=== PATIENT | male | born 1925 | race Caucasian/White ===

== ENCOUNTER 2016-08-29 21:07 | Emergency (ER) | payer MEDICARE ==
[~2016-08-29] VITALS: Ht 177.8 cm; Wt 70.9 kg
[~2016-08-29 21:07] MED LIST: AMLO2.5T2 PO; ASA325 PO; CHOL400T41 PO; COR200 PO; CYAN250L PO; FLONASE; PAN PO; PRV40T PO; ProAirHFA INH; ZINC1CAP PO
[2016-08-29 21:35] VITALS: BP 159/72; PULSE 82; RESP 16; O2SAT 93
[2016-08-29 22:12] LABS: BASOPHILS % (AUTO) 0.5 % (0-3); EOSINOPHILS % (AUTO) 2.7 % (0-5); MONOCYTES % (AUTO) 8.8 % (4-12); Mean Corpuscular Hemoglobin 30.2 pg (27.0-35.0); Mean Corpuscular Volume 91.9 fL (81-100); NEUTROPHILS % (AUTO) 69.1 % (40-74); Platelet Count 189 bil/L (150-400)
[2016-08-29 22:27] LABS: INR 0.94 ratio
[2016-08-29 22:47] LABS: TROPONIN T 0.01 ug/L (0.0-0.011)
[2016-08-29] MEDS ORDERED: CLOP75TA28 PO (23:45)
--- NOTE | 2016-08-29 23:45 | ED.REPORT ---
HPI-General Illness Date of Service Aug 29, 2016 ED Provider: Vasquez Nayak MD Pt is an 89 year old male with a history of HTN, pacemaker insertion, and COPD who presents to the ED complaining of epistaxis. He c/o associated SOB, elevated blood pressure (176/96), and and chest pain. Pt described his chest pain as tight and heavy and reports that he feels "jittery." He denies any other symptoms. Pt's daughter reports that he may have taken 1.5x his normal dose of amlodipine on accident and he has not taken his heart pill today. Pt has not taken warfarin, but he has been taking Plavix. Nursing Notes Stated Complaint: POSSIBLY TOO MUCH BLOOD PRESSURE MEDS Chief Complaint: General Complaint Nursing Notes Reviewed: Yes Allergies: Coded Allergies: Wheat (Verified Allergy, Unknown, 08/29/16) Breakout with blisters tamsulosin (Verified Allergy, Unknown, 08/29/16) blisters, sinus, stuffy nose tetracycline (Verified Allergy, Unknown, 08/29/16) break in blood veins Scheduled AmLODIPine-Expunged Drug, Do Not Renew! (AmLODIPine-Expunged Drug, Do Not Renew! ) 2.5 Mg Tablet 1.25 MG PO DAILY Amiodarone-Expunged Drug, Do Not Renew! (Amiodarone-Expunged Drug, Do Not Renew! ) 200 Mg Tablet 100 MG PO DAILY Aspirin-Expunged Drug, Do Not Renew! (Aspirin-Expunged Drug, Do Not Renew!) 325 Mg Tablet 325 MG PO DAILY CHOLECALCIFEROL-Expunged Drug, Do Not Renew! (VITAMIN D-Expunged Drug, Do Not Renew!) 400 Unit Tablet 50,000 UNIT PO month CYANOCOBALAMIN (B12)-Expunged Drug, Do Not Re (VITAMIN J-17-Icnvovqu Drug, Do Not Renew!) 250 Mcg Lozenge 500 MCG PO QW Clopidogrel (Clopidogrel) 75 Mg Tablet 37.5 MG PO DAILY FLUTICASONE-Expunged Drug, Do Not Renew! (FLONASE-Expunged Drug, Do Not Renew!) 120 Sprays/16 Gm Aero 1 SPRAYS NA BID Lipase/Amylase/Protease-Expunged, Do Not Albin (Pancrease-Expunged, Do Not Renew! ) 1 Ea Cap 1 EA PO TIDWM Pravastatin-Expunged Drug, Do Not Renew! (Pravachol-Expunged Drug, Do Not Renew! ) 40 Mg Tablet 40 MG PO HS Zinc Mth/Copper/Saw Palm/Gnsg ([facility]) 1 Each Capsule 1 EACH PO DAILY Scheduled PRN Albuterol-Expunged Drug, Do Not Renew! (ProAir HFA-Expunged Drug, Do Not Renew! ) 200 Puff/8.5 Gm Hfa.aer.ad 2 PUFFS INH Q4 PRN PRN General Time Seen by MD: 23:43 Chief Complaint Other (Nose bleeding) Hx Obtained From: Patient Arrived By: Walk-in Sudden in Onset?: No Onset Occurred: Just prior to arrival Symptom Duration: Since onset Location: : Chest Quality: Heaviness Severity: Current: Moderate Severity: Maximum: Moderate Recent Healthcare: No recent doctor visit, No recent hospitalization Similar Sx Previous: Yes Past Medical History Past Medical History Cataracts Reports: Asthma, COPD, Hypertension, Denies: Diabetes mellitus Past Surgical History Pacemaker insertion Smoking History Unknown if Ever Smoker Social History Alcohol Use: Denies alcohol use Drug Use: Denies drug use Other Social History: Good social support Ambulatory Status Independent Review of Systems Full Review of Systems Constitutional: Denies: Fever Ears / Nose / Throat: Reports: Nose bleeding Respiratory: Reports: Shortness of breath, Denies: Non-productive cough Cardiovascular: Reports: Chest pain (Tight) Complete sys rev & neg: except as marked. Physical Exam Vital Signs Vital Signs Date Time Temp Pulse Resp B/P Pulse Ox O2 Delivery O2 Flow Rate FiO2 08/30/16 02:11 128/54 94 08/29/16 21:35 36.5 82 16 159/72 93 Room Air Initial VS: Reviewed, Vital signs normal Head / Eyes: Atraumatic, Normocephalic Neck: Supple, Full range of motion Respiratory: Breath sounds normal, Clear to auscultation, No respiratory distress Cardiovascular: Regular rate & rhythm, Heart sounds normal, Intact distal pulses Abdomen / GI: Soft, Non-tender Extremities: Vascular intact, Neuro intact Skin: Warm, Dry, No cyanosis Neurologic: Alert, Oriented, Nonfocal Psychiatric: Mood/affect normal, Behavior normal General/Constitutional: Awake, Alert, Cooperative ENT: Atraumatic, Airway patent, Mucous membranes moist Dried blood in his nose, but no active bleeding. Interpretation & Diagnostics Lab Results Interpretation Result Diagram: 08/29/16 2200 08/30/16 0045 Test 08/29/16 22:00 08/30/16 00:45 White Blood Count 8.8th/mm3 (3.8-10.1) Red Blood Count 5.59mil/mm3 (4.40-5.80) Hemoglobin 16.9g/dL (13.8-17.2) Hematocrit 51.4% (41.0-50.0) Mean Corpuscular Volume 91.9fL (81-100) Mean Corpuscular Hemoglobin 30.2pg (27.0-35.0) Mean Corpuscular Hemoglobin Concent 32.9% (32.0-37.0) Red Cell Distribution Width 15.1% (12.3-15.4) Platelet Count 189bil/L (150-400) Neutrophils (%) (Auto) 69.1% (40-74) Lymphocytes (%) (Auto) 18.8% (14-46) Monocytes (%) (Auto) 8.8% (4-12) Eosinophils (%) (Auto) 2.7% (0-5) Basophils (%) (Auto) 0.5% (0-3) Prothrombin Time 10.0sec (8.1-12.5) Prothromb Time International Ratio 0.94ratio Hold Goff Top Tube Received (Received) Sodium Level 139mEq/L (134-144) Potassium Level 4.1mEq/L (3.5-5.2) Chloride Level 101mEq/L (97-108) Carbon Dioxide Level 20mmol/L (18-29) Blood Urea Nitrogen 18mg/dL (8-27) Creatinine 1.08mg/dL (0.76-1.27) Estimat Glomerular Filtration Rate 68mL/min (>59) Glucose Level 135mg/dL (60-99) Calcium Level 9.5mg/dL (8.5-10.1) Magnesium Level 2.3mg/dL (1.6-2.6) Total Bilirubin 0.3mg/dL (0.0-1.2) Aspartate Amino Transf (AST/SGOT) 22U/L (0-50) Alanine Aminotransferase (ALT/SGPT) 16U/L (0-44) Alkaline Phosphatase 76U/L (25-160) Troponin T 0.010ug/L (0.0-0.011) Total Protein 7.6g/dL (6.4-8.4) Albumin 4.3g/dL (3.4-5.0) Lab values outside NL range: no clinical significance. ECG Interpretation ECG Interpretation: Atrial-sensed ventricular-paced complexes with a rate of 85. Time: 23:33 Interpreted by: ED physician X-Ray Chest Interpretation Chest Xray Interpretation: Increased marking; evidence of COPD. No sign of infiltrate seen. View: AP & lat Interpretation / Wet Read by: Wet read ED physician Re-Eval/Medical Decision Med Decision/Clinical Course 89-year-old male with some labile hypertension. I suspect that he has been somewhat erratic in taking his medications. He also had some vague chest discomfort. Workup was negative. His blood pressure normalized and he had no further nose bleeding. Source of Hx: Old records Time of Eval: 23:56 Re-Evaluation/Progress Note: Pt rechecked. Pt took his 100 mg of Amiodarone that he missed. All questions addressed. Time of Eval: 01:45 Patient Status: Condition improved Re-Evaluation/Progress Note: Pt rechecked. Pt reports that his chest pressure has improved, but not completely resolved and that he thinks it is digestive. Informed pt of plan for discharge. Pt understands and agrees with plan for discharge. F/U instructions and RTER warnings given. All questions addressed. Counseled Regarding: Diagnosis, Lab results, Need for follow-up, When/why to return to ED Discharge & Departure Primary Impression: Labile hypertension Additional Impression: Epistaxis Disposition: Home Discharge Condition All VS Reviewed: Yes Condition: Stable Patient Instructions: Chronic Hypertension (ED) Additional Instructions: It is quite common for a person with hypertension to have elevated blood pressure with no known cause. If your blood pressure continues to be elevated, we will need to make some adjustment in her medications, but we do not usually change anything until it has become a more persistent problem. Amiodarone needs to be taken consistently at approximately the same time every day. You should probably move your amiodarone dose time to morning to make it easier to remember. Try not to miss doses. If the nose rebleeds, simply apply the clamp for 15 or 20 minutes and that should stop it. If not he can return to the emergency room for further evaluation and possible packing. Call me at [phone] the hours of 9 PM and 6 AM for the next couple nights if you have any questions and concerns. Referrals: [facility] Scribe Attestation Portions of this note were transcribed by Cinthia Elisa. I, Dr. Nayak personally performed the history, physical exam and medical decision-making; I reviewed and confirmed the accuracy of the information in the transcribed note. Signed by: Dean Murdock, 08/30/16 and 00:50. copies to: [facility] Vasquez Nayak MD Aug 29, 2016 23:45 Cinthia Fisher Aug 29, 2016 23:54
[2016-08-30 01:22] LABS: TROPONIN T 0.01 ug/L (0.0-0.011)
[2016-08-30 01:35] LABS: Magnesium 2.3 mg/dL (1.6-2.6)
[2016-08-30 02:11] VITALS: BP 128/54; O2SAT 94
--- NOTE | 2016-08-30 07:08 | DRSVH ---
PROCEDURE: X-RAY CHEST ONE VIEW, PORTABLE ([id number]) INDICATIONS: short of breath TECHNIQUE: One view of the chest was acquired. COMPARISON: [facility], , CHEST 1VW (PORTABLE), 10/23/2011, 20:39. FINDINGS: Surgical changes and devices: Left-sided cardiac pacer. Lungs and pleura: There is a 1 cm nodule projecting over the left lung base. Extensive scarring and e mphysema. No definite infiltrates. No pleural effusions.. Mediastinum: Mediastinal contours appear normal. Heart size is normal. Bones and chest wall: No suspicious bony lesions. Overlying soft tissues appear unremarkable. IMPRESSION: 1. Possible left lung base nodule may represent confluent scarring, an atypical nipple shadow, or a m ass. Recommend chest CT with contrast for further evaluation. 2. Emphysema. Dictated by: Rachid Nath M.D. on 08/30/2016 at 6:59 Approved by: Rachid Nath M.D. on 08/30/2016 at 7:01
== END 2016-08-30 02:35 | disposition home or self-care (01) ==
LOC: SED 21:07
DX: R04.0 Epistaxis (principal); I10 Essential (primary) hypertension; R06.02 Shortness of breath; R07.89 Other chest pain; J44.9 Chronic obstructive pulmonary disease, unspecified; Z95.0 Presence of cardiac pacemaker; Z88.1 Allergy status to other antibiotic agents; Z88.8 Allergy status to other drugs, medicaments and biological substances; Z91.018 Allergy to other foods

== ENCOUNTER 2016-10-05 16:18 | Emergency (ER) | payer MEDICARE ==
[~2016-10-05] VITALS: Ht 175.3 cm; Wt 155.0 kg
[2016-10-05] VITALS (7 sets, daily range): BP systolic 126–147; BP diastolic 45–76; PULSE 77–92; RESP 15–20; O2SAT 90–96
[~2016-10-05 16:18] MED LIST changes: +CLOP75TA28 PO
[2016-10-05 17:02] LABS: BASOPHILS % (AUTO) 0.4 % (0-3); EOSINOPHILS % (AUTO) 1.2 % (0-5); MONOCYTES % (AUTO) 4.3 % (4-12); Mean Corpuscular Hemoglobin 30.7 pg (27.0-35.0); Mean Corpuscular Volume 91.8 fL (81-100); NEUTROPHILS % (AUTO) 81.9 % (40-74); Platelet Count 184 bil/L (150-400)
[2016-10-05 17:23] LABS: TROPONIN T < 0.010 ug/L (0.0-0.011)
[2016-10-05 17:33] LABS: Magnesium 2.1 mg/dL (1.6-2.6)
--- NOTE | 2016-10-05 18:04 | DRSVH ---
PROCEDURE: X-RAY CHEST ONE VIEW, PORTABLE ([id number]) INDICATIONS: CHEST PAIN, SHORTNESS OF BREATH TECHNIQUE: One view of the chest was acquired. COMPARISON: [facility], CR, XR CHEST 1VW (PORTABLE), 08/29/2016, 21:50. FINDINGS: Surgical changes and devices: Dual-lead cardiac pacer is stable. Lungs and pleura: No pleural effusions or pneumothorax. Lungs are hyperinflated suggesting COPD. Syeda gs are clear of acute opacities. Mediastinum: Mediastinal contours appear normal. Heart size is normal. Bones and chest wall: No suspicious bony lesions. Overlying soft tissues appear unremarkable. IMPRESSION: No acute cardiopulmonary disease process. Dictated by: Verito Fitch MD, PhD on 10/05/2016 at 18:00 Approved by: Verito Fitch MD, PhD on 10/05/2016 at 18:03
--- NOTE | 2016-10-05 18:22 | ED.REPORT ---
HPI-Chest Pain 40 and Over Date of Service Oct 05, 2016 ED Provider: Missael Marinelli DO Patient is an 89 year old male with a history of pacemaker, hypertension, COPD and CVA who presents to the ED complaining of chest pressure onset earlier today. Associated symptoms include shortness of breath, diarrhea and a subjective fever. He denies radiating pain, nausea or vomiting. Patient states that the pressure lasted about 5 minutes. The patient reports that the pain improved after taking his blood pressure medication. He is currently on Plavix. Nursing Notes Stated Complaint: CHEST PAIN, CHEST PRESSURE, HIGH BLOOD PRESSURE Chief Complaint: Dysrhythmia/Cardiac Nursing Notes Reviewed: Yes Allergies: Coded Allergies: Wheat (Verified Allergy, Unknown, 10/05/16) Breakout with blisters tamsulosin (Verified Allergy, Unknown, 10/05/16) blisters, sinus, stuffy nose tetracycline (Verified Allergy, Unknown, 10/05/16) break in blood veins Scheduled AmLODIPine-Expunged Drug, Do Not Renew! (AmLODIPine-Expunged Drug, Do Not Renew! ) 2.5 Mg Tablet 1.25 MG PO DAILY Amiodarone-Expunged Drug, Do Not Renew! (Amiodarone-Expunged Drug, Do Not Renew! ) 200 Mg Tablet 100 MG PO DAILY Aspirin-Expunged Drug, Do Not Renew! (Aspirin-Expunged Drug, Do Not Renew!) 325 Mg Tablet 325 MG PO DAILY CHOLECALCIFEROL-Expunged Drug, Do Not Renew! (VITAMIN D-Expunged Drug, Do Not Renew!) 400 Unit Tablet 50,000 UNIT PO month CYANOCOBALAMIN (B12)-Expunged Drug, Do Not Re (VITAMIN K-90-[place] Drug, Do Not Renew!) 250 Mcg Lozenge 500 MCG PO QW Clopidogrel (Clopidogrel) 75 Mg Tablet 37.5 MG PO DAILY FLUTICASONE-Expunged Drug, Do Not Renew! (FLONASE-Expunged Drug, Do Not Renew!) 120 Sprays/16 Gm Aero 1 SPRAYS NA BID Lipase/Amylase/Protease-Expunged, Do Not Albin (Pancrease-Expunged, Do Not Renew! ) 1 Ea Cap 1 EA PO TIDWM Pravastatin-Expunged Drug, Do Not Renew! (Pravachol-Expunged Drug, Do Not Renew! ) 40 Mg Tablet 40 MG PO HS Zinc Mth/Copper/Saw Palm/Gnsg (Prostate Health Formula [facility]) 1 Each Capsule 1 EACH PO DAILY Scheduled PRN Albuterol-Expunged Drug, Do Not Renew! (ProAir HFA-Expunged Drug, Do Not Renew! ) 200 Puff/8.5 Gm Hfa.aer.ad 2 PUFFS INH Q4 PRN PRN General Time Seen by MD: 18:09 Chief Complaint Chest pressure Hx Obtained From: Patient Arrived By: Walk-in Sudden in Onset?: Yes Onset Occurred: 1 - 4 hours ago Symptom Duration: 1 - 15 minutes Location: : Substernal Quality: Pressure Radiation: : Does not radiate Migration/Movement: Reports: None Severity: Current: Moderate Past Medical History Past Medical History Cataracts CVA Reports: Asthma, COPD, Hypertension Past Surgical History Pacemaker insertion Smoking History Unknown if Ever Smoker Social History Alcohol Use: Denies alcohol use Drug Use: Denies drug use Other Social History: Good social support Ambulatory Status Independent Review of Systems Constitutional: Reports: Fever (subjective), Denies: Chills Respiratory: Reports: Shortness of breath, Wheezing, Denies: Non-productive cough Cardiovascular: Reports: Chest pain GI: Reports: Diarrhea, Denies: Nausea, Vomiting Skin: Denies Itching, Denies Rash Neurologic: Reports: Shaking, Denies: Weakness Complete sys rev & neg: except as marked. Physical Exam Initial Vital Signs Vital Signs (First) Date Time Temp Pulse Resp B/P Pulse Ox O2 Delivery O2 Flow Rate FiO2 10/05/16 16:25 36.8 92 18 130/76 91 Room Air 10/05/16 19:18 2 Initial VS: Reviewed General/Constitutional: Awake, Alert Respiratory / Chest: Atraumatic, No respiratory distress Wheezing / Retractions: Positive: Wheezing expiratory Cardiovascular: Heart rate NL, Regular rhythm, Heart sounds NL Abdomen: Atraumatic, Soft, Non-tender Lower Extremity / Pelvis / MS: Atraumatic, No edema Skin: Atraumatic, Color NL, No rash, Warm, Dry Neurologic: Oriented X3, Speech NL Psychiatric: Affect NL, Mood NL Head / Eyes: Atraumatic, Normocephalic, PERRL, EOMI Upper Extremity / MS: Atraumatic, Full range of motion Interpretation & Diagnostics Lab Results Interpretation Result Diagram: 10/05/16 1654 10/05/16 1654 Test 10/05/16 16:54 10/05/16 17:16 10/05/16 18:56 10/05/16 21:21 White Blood Count 7.4th/mm3 (3.8-10.1) Red Blood Count 5.22mil/mm3 (4.40-5.80) Hemoglobin 16.0g/dL (13.8-17.2) Hematocrit 47.9% (41.0-50.0) Mean Corpuscular Volume 91.8fL (81-100) Mean Corpuscular Hemoglobin 30.7pg (27.0-35.0) Mean Corpuscular Hemoglobin Concent 33.4% (32.0-37.0) Red Cell Distribution Width 15.1% (12.3-15.4) Platelet Count 184bil/L (150-400) Neutrophils (%) (Auto) 81.9% (40-74) Lymphocytes (%) (Auto) 12.1% (14-46) Monocytes (%) (Auto) 4.3% (4-12) Eosinophils (%) (Auto) 1.2% (0-5) Basophils (%) (Auto) 0.4% (0-3) D-Dimer 1.01mg/L FEU (<0.50) Sodium Level 141mEq/L (134-144) Potassium Level 4.2mEq/L (3.5-5.2) Chloride Level 102mEq/L (97-108) Carbon Dioxide Level 21mmol/L (18-29) Blood Urea Nitrogen 15mg/dL (8-27) Creatinine 0.98mg/dL (0.76-1.27) Estimat Glomerular Filtration Rate 77mL/min (>59) Glucose Level 192mg/dL (60-99) Calcium Level 9.5mg/dL (8.5-10.1) Magnesium Level 2.1mg/dL (1.6-2.6) Total Bilirubin 0.3mg/dL (0.0-1.2) Aspartate Amino Transf (AST/SGOT) 19U/L (0-50) Alanine Aminotransferase (ALT/SGPT) 13U/L (0-44) Alkaline Phosphatase 71U/L (25-160) Total Protein 7.7g/dL (6.4-8.4) Albumin 4.3g/dL (3.4-5.0) Hold Goff Top Tube Received (Received) Hold Urine Received (Received) Urine Color Yellow (YELLOW) Urine Appearance Clear (CLEAR,HAZY) Urine pH 5.5 (5.0-8.0) Urine Specific Spring 1.015 (1.003-1.035) Urine Protein Negativemg/dL (NEG,TRACE) Urine Glucose (UA) Negativemg/dL (NEGATIVE) Urine Ketones Negativemg/dL (NEGATIVE) Urine Occult Blood Negative (NEGATIVE) Urine Nitrite Negative (NEGATIVE) Urine Bilirubin Negative (NEGATIVE) Urine Urobilinogen Normalmg/dL (NORMAL) Urine Leukocyte Esterase Trace (NEGATIVE) Urine RBC 0-2/hpf (0-2) Urine WBC 6-10/hpf (0-5) Urine Epithelial Cells Few/hpf (NONE-MOD) Urine Crystals None seen (NONE SEEN) Urine Bacteria Few/hpf (NONE-FEW) Urine Hyaline Casts None/lpf (NONE) Urine Granular Casts None seen (NONE SEEN) Urine Waxy Casts None seen (NONE SEEN) Urine Red Blood Cell Casts None seen (NONE SEEN) Urine White Blood Cell Casts None seen (NONE SEEN) Urine Mucus Present (None Seen) Urine Trichomonas None seen (NONE SEEN) Urine Yeast None (NONE SEEN) Urinalysis Comment None Urine Culture Reflexed Indicated Troponin T 0.010ug/L (0.0-0.011) ECG Interpretation ECG Interpretation: ventricular-paced rhythm Time: 16:58 Interpreted by: ED physician Normal ECG Interpretation: Normal rate (86) X-Ray Chest Interpretation Chest Xray Interpretation: IMPRESSION: No acute cardiopulmonary disease process. Dictated by: Verito Fitch MD, PhD on 10/05/2016 at 18:00 Approved by: Verito Fitch MD, PhD on 10/05/2016 at 18:03 View: Portable, 1 view Interpretation / Wet Read by: Interpret - Radiologist CT Chest Interpretation IMPRESSION: No pulmonary emboli identified. No aorta dissection evident. COPD. Probable scarring noted dependent aspects of both upper lobes/bilateral lower lobes. Atypical pneumonitis not excluded. Biapical pleural-parenchymal scarring. Pacemaker present. Cardiomegaly. at 2301 Study type: CT pulm angiogram Interpretation / Wet Read by: Interpret - Radiologist Re-Eval/Medical Decision Med Decision/Clinical Course HI ruled out with serial troponins. EKG is reassuring and shows good capture. Pulmonary emboli ruled out. CT shows most likely emphysematous changes consistent with his exam. There is always a chance that there is no infection. He did have a chill earlier as well place him on a beta-lactam. Recommend close follow-up. I did offer and recommend hospitalization. Family would really like him to go home. His oxygen levels in the 90s. He was pain-free. I think he is a reasonable candidate for home treatment with very close outpatient follow-up. Time of Eval: 21:13 Patient Status: Condition improved Re-Evaluation/Progress Note: Discussed X-ray, EKG and labs. Plan for repeat trop test and CT Time of Eval: 23:10 Patient Status: Condition improved Re-Evaluation/Progress Note: Discussed results and option for admit. Patient and patient's family would like to go home. Discussed plan for discharge. Patient understands and agrees to plan. All questions were addressed. Counseled Regarding: Diagnosis, Lab results, Need for follow-up, When/why to return to ED Discharge & Departure Primary Impression: Hypertension Hypertension type: unspecified secondary hypertension Qualified Code: I15.9 - Secondary hypertension, unspecified Additional Impressions: Chest pressure COPD exacerbation Disposition: Home Discharge Condition All VS Reviewed: Yes Condition: Stable Patient Instructions: Hypertension (ED) Additional Instructions: Your EKG, X-ray and labs were all normal and reassuring. Your heart enzymes were also normal. The CT showed no evidence of a blood clot and was also reassuring. The CT did show that you may be developing an atypical pneumonitis. Take Augmentin 2x a day for 5 days to help the infection. You can also use 2 puff of the Albuterol every 4 hours as needed for shortness of breath. Continue to take your medications as prescribed. Follow up with your primary care physician next week. Return to the emergency department if you develop any new or concerning symptoms Referrals: Mabel Thomas MD (PCP) Scribe Attestation Portions of this note were transcribed by Amarilys Hamilton. I, Dr. Marinelli personally performed the history, physical exam and medical decision-making; I reviewed and confirmed the accuracy of the information in the transcribed note. Signed by: Dean Anglin, 10/05/16 copies to: Mabel Thomas MD, Todd P DO Oct 05, 2016 18:22 Sandra Hamilton Oct 05, 2016 18:34
[2016-10-05] MEDS ORDERED: Albuterol-Ipratropium 3 mL Inhalation Solution NEB ONE (18:55)
[2016-10-05 19:13] LABS: APPEARANCE,URINE CLEAR (CLEAR,HAZY); COLOR,URINE YELLOW (YELLOW); PH,URINE 5.5 (5.0-8.0)
[2016-10-05 19:14] LABS: OCCULT BLOOD,URINE NEGATIVE (NEGATIVE); UROBILINOGEN,URINE NORMAL (NORMAL)
[2016-10-05] MEDS ORDERED: Amoxicillin-Clav 875-125 mg Tablet PO ONE (23:10)
[2016-10-05] MEDS ORDERED: Dexamethasone Inj 10 MG in 0.9% Sodium Chloride-Pha MIX 50 ML IV ONE (23:15)
[2016-10-05] MEDS ORDERED: _Proair 200 Puff/8.5 GM Inhaler INHALATION PRN (23:15)
[2016-10-05] MEDS ORDERED: Dexamethasone 10 mg/mL Inj ONE (23:53)
[2016-10-06 00:20] VITALS: BP 145/58; PULSE 71; RESP 19; O2SAT 93
--- NOTE | 2016-10-06 07:42 | DRSVH ---
PROCEDURE: CT ANGIO CHEST PULMONARY EMBOLISM ([id number]) INDICATIONS: chest pain, sob, elevated ddimer, normal xray,ekg TECHNIQUE: After the administration of intravenous contrast, 2 mm thick sections acquired from the pulmonary api di to the posterior costophrenic angles. 3-dimensional maximum intensity projection (MIP) coronal a nd sagittal reformats were then acquired through the thorax. For radiation dose reduction, the follo wing was used: automated exposure control, adjustment of mA and/or kV according to patient size. COMPARISON: [facility], CR, XR CHEST 1VW (PORTABLE), 10/05/2016, 17:19. FINDINGS: Image quality: Good. Pulmonary arteries: Pulmonary arteries are normal in size, and demonstrate no intraluminal filling d efects to suggest central pulmonary embolism. Lungs and pleura: Lungs are clear acute infiltrates prominent increased markings and scarring and bl eb formation is present. Emphysematous changes are present.. No pleural effusions or pneumothorax. Central and peripheral airways are patent. Mediastinum: Heart size is enlarged without pericardial effusion. Dual-lead pacemaker from the left is present. No mediastinal or hilar adenopathy. Thoracic aorta is normal in caliber and enhancement. Esophagus is normal in caliber, without hiatal hernia. Bones and chest wall: No suspicious bony lesions. Ribs and thoracic spine appear intact throughout. Thyroid gland is within normal limits. No axillary or supraclavicular adenopathy. Abdomen: Visualized upper abdominal solid organs appear normal in the early arterial phase of enhanc ement. IMPRESSION: 1. No pulmonary emboli. No aortic or great vessel dissection or aneurysm. 2. Diffuse chronic COPD changes scarring changes apical pleural thickening. Acute lung disease is not appreciated. 3. Enlarged heart and dual-lead pacemaker. Dictated by: Jae Bah M.D. on 10/06/2016 at 7:34 this report corresponds to the findings of e preliminary NSR report. Approved by: Jae aBh M.D. on 10/06/2016 at 7:40
== END 2016-10-06 00:22 | disposition home or self-care (01) ==
LOC: SED 16:18
DX: I15.9 Secondary hypertension, unspecified (principal); J44.1 Chronic obstructive pulmonary disease with (acute) exacerbation; Z86.73 Personal history of transient ischemic attack (TIA), and cerebral infarction without residual deficits; Z95.0 Presence of cardiac pacemaker; Z88.1 Allergy status to other antibiotic agents; Z88.8 Allergy status to other drugs, medicaments and biological substances
CPT/HCPCS: 36415; 71010; 71275; 80053; 81000; 82948; 83735; 84484; 85025; 85378; 87086; 93005; 99285; J1100; J7620; Q9967

== ENCOUNTER 2016-11-14 20:06 | Emergency (ER) | payer MEDICARE ==
[~2016-11-14] VITALS: Ht 175.3 cm; Wt 70.5 kg
[2016-11-14 20:21] VITALS: BP 161/74; PULSE 79; RESP 20; O2SAT 94
--- NOTE | 2016-11-14 21:37 | ED.REPORT ---
HPI-Dyspnea / Wheezing Date of Service Nov 14, 2016 ED Provider: Vasquez Nayak MD An 89 year old male with a history of COPD, CVA, asthma, pacemaker insertion and hypertension is brought to the ED by family due to low oxygen saturation. The pt was short of breath today after walking to his house from the car, and his oxygen saturation was measured at approximately 85% at that time. It was also noted that his blood pressure was higher than normal during a similar episode previously, and the pt's daughter suspects that his blood pressure may be high now as well. The pt was diagnosed with pneumonia one to two months ago and he subsequently completed a course of antibiotics. He has a follow up appointment scheduled in two days. Nursing Notes Stated Complaint: LOW OXYGEN, HIGH BLOOD PRESSURE Chief Complaint: General Complaint Nursing Notes Reviewed: Yes Allergies: Coded Allergies: Wheat (Verified Allergy, Unknown, 10/05/16) Breakout with blisters tamsulosin (Verified Allergy, Unknown, 10/05/16) blisters, sinus, stuffy nose tetracycline (Verified Allergy, Unknown, 10/05/16) break in blood veins Scheduled AmLODIPine-Expunged Drug, Do Not Renew! (AmLODIPine-Expunged Drug, Do Not Renew! ) 2.5 Mg Tablet 1.25 MG PO DAILY Amiodarone-Expunged Drug, Do Not Renew! (Amiodarone-Expunged Drug, Do Not Renew! ) 200 Mg Tablet 100 MG PO DAILY Aspirin-Expunged Drug, Do Not Renew! (Aspirin-Expunged Drug, Do Not Renew!) 325 Mg Tablet 325 MG PO DAILY CHOLECALCIFEROL-Expunged Drug, Do Not Renew! (VITAMIN D-Expunged Drug, Do Not Renew!) 400 Unit Tablet 50,000 UNIT PO month CYANOCOBALAMIN (B12)-Expunged Drug, Do Not Re (VITAMIN P-61-Wojupqkv Drug, Do Not Renew!) 250 Mcg Lozenge 500 MCG PO QW Clopidogrel (Clopidogrel) 75 Mg Tablet 37.5 MG PO DAILY FLUTICASONE-Expunged Drug, Do Not Renew! (FLONASE-Expunged Drug, Do Not Renew!) 120 Sprays/16 Gm Aero 1 SPRAYS NA BID Lipase/Amylase/Protease-Expunged, Do Not Albin (Pancrease-Expunged, Do Not Renew! ) 1 Ea Cap 1 EA PO TIDWM Pravastatin-Expunged Drug, Do Not Renew! (Pravachol-Expunged Drug, Do Not Renew! ) 40 Mg Tablet 40 MG PO HS Zinc Mth/Copper/Saw Palm/Gnsg (Prostate Health Formula Sftgel) 1 Each Capsule 1 EACH PO DAILY Scheduled PRN Albuterol-Expunged Drug, Do Not Renew! (ProAir HFA-Expunged Drug, Do Not Renew! ) 200 Puff/8.5 Gm Hfa.aer.ad 2 PUFFS INH Q4 PRN PRN General Time Seen by MD: 21:35 Chief Complaint Other (Low oxygen saturation) Hx Obtained From: Patient, Daughter Arrived By: Walk-in Sudden in Onset?: No Onset Occurred: 1 - 4 hours ago Recent Healthcare: No recent hospitalization, Recent doctor visit Similar Sx Previous: Yes Past Medical History Past Medical History Cataracts CVA Arthritis Reports: Asthma, COPD, Hypertension Past Surgical History Pacemaker insertion Smoking History Unknown if Ever Smoker Social History Alcohol Use: Denies alcohol use Drug Use: Denies drug use Other Social History: Good social support Ambulatory Status Independent Review of Systems Review of Systems Note: low oxygen saturation high blood pressure Respiratory: Reports: Shortness of breath, Denies: Non-productive cough Cardiovascular: Denies: Chest pain Musculoskeletal: Denies: Back pain, Neck pain Skin: Denies Rash Complete sys rev & neg: except as marked. GI: Denies: Abdominal pain, Vomiting Physical Exam Initial Vital Signs Vital Signs (First) Date Time Temp Pulse Resp B/P Pulse Ox O2 Delivery O2 Flow Rate FiO2 11/14/16 20:21 36.7 79 20 161/74 94 Room Air Initial VS: Reviewed, Vital signs normal General/Constitutional: Awake, Alert Neck: Atraumatic, Supple, Full range of motion, No JVD Respiratory / Chest: Breath sounds = bilat, No respiratory distress scattered expiratory wheezes Cardiovascular: Heart rate NL, Regular rhythm, Heart sounds NL ENT: Mucous membranes moist Abdomen: Soft, Non-tender ventral abdominal wall hernia Back: Atraumatic, Full range of motion Lower Extremity / Pelvis / MS: Atraumatic, Full range of motion, No edema 1+ edema, symmetric bilaterally Skin: Color NL, Warm, Dry senescent changes of the skin Neurologic: Oriented X3, Speech NL, No motor deficits, No sensory deficits Head / Eyes: Atraumatic, Normocephalic, PERRL, EOMI Upper Extremity / MS: Atraumatic, Full range of motion Psychiatric: Affect NL, Mood NL Interpretation & Diagnostics Lab Results Interpretation Result Diagram: 11/14/162 11/14/16 2332 Test 11/14/16 23:32 White Blood Count 8.8th/mm3 (3.8-10.1) Red Blood Count 5.06mil/mm3 (4.40-5.80) Hemoglobin 15.8g/dL (13.8-17.2) Hematocrit 46.3% (41.0-50.0) Mean Corpuscular Volume 91.5fL (81-100) Mean Corpuscular Hemoglobin 31.2pg (27.0-35.0) Mean Corpuscular Hemoglobin Concent 34.1% (32.0-37.0) Red Cell Distribution Width 15.3% (12.3-15.4) Platelet Count 170bil/L (150-400) Neutrophils (%) (Auto) 65.3% (40-74) Lymphocytes (%) (Auto) 24.9% (14-46) Monocytes (%) (Auto) 6.9% (4-12) Eosinophils (%) (Auto) 2.5% (0-5) Basophils (%) (Auto) 0.3% (0-3) Sodium Level 140mEq/L (134-144) Potassium Level 4.2mEq/L (3.5-5.2) Chloride Level 101mEq/L (97-108) Carbon Dioxide Level 21mmol/L (18-29) Blood Urea Nitrogen 15mg/dL (8-27) Creatinine 0.89mg/dL (0.76-1.27) Estimat Glomerular Filtration Rate 86mL/min (>59) Glucose Level 148mg/dL (60-99) Calcium Level 9.5mg/dL (8.5-10.1) Magnesium Level 2.3mg/dL (1.6-2.6) Total Bilirubin 0.3mg/dL (0.0-1.2) Aspartate Amino Transf (AST/SGOT) 16U/L (0-50) Alanine Aminotransferase (ALT/SGPT) 11U/L (0-44) Alkaline Phosphatase 69U/L (25-160) Troponin T 0.010ug/L (0.0-0.011) Pro-B-Type Natriuretic Peptide 370.3pg/mL (0-486) Total Protein 7.5g/dL (6.4-8.4) Albumin 4.2g/dL (3.4-5.0) Hold Goff Top Tube Received (Received) Lab values outside NL range: no clinical significance. ECG Interpretation ECG Interpretation: ventricular-paced rhythm with a rate of 67 Time: 22:18 Interpreted by: ED physician X-Ray Chest Interpretation Chest Xray Interpretation: pacemaker in place no pneumonia Interpretation / Wet Read by: Wet read ED physician Re-Eval/Medical Decision Med Decision/Clinical Course 89-year-old male who had some shortness of breath at home. His oxygen saturations in the 88-92 range. He is being evaluated for home oxygen but does not have it yet. His family is concerned that he might have pneumonia. Chest x -ray shows no evidence of no pneumonia. He had some scattered wheezes which responded nicely to treatment with albuterol and ipratropium. He did have some muscle shaking following the treatment which has happened at home. It appears to be due to the stimulation of the medication. Workup here in the emergency room showed no evidence of serious cardiopulmonary disease. Source of Hx: Old records Re-Evaluation/Progress : Time of Eval: 01:04 Patient Status: Condition resolved Re-Evaluation/Progress Note: Patient rechecked. Discussed plan for discharge. Patient understands and agrees with plan. F/U instructions and RTER warnings given. All questions addressed at this time. Counseled Regarding: Diagnosis, Lab results, Need for follow-up, When/why to return to ED Discharge & Departure Impression: Primary Impression: COPD exacerbation Disposition: Home Discharge Condition All VS Reviewed: Yes Condition: Stable Patient Instructions: COPD (Chronic Obstructive Pulmonary Disease) (ED) Additional Instructions: Your shortness of breath seems to be due to your COPD. There is no pneumonia and no evidence of problems with the heart. Continue the discussion with your new doctor about whether you need home oxygen or not. Right now you do not fully meet criteria. The jitteriness that you got with muscle tremors is probably from your breathing treatment. There is not much that can be done about that. See your regular doctor as planned on Monday. Referrals: Mabel Thomas MD (PCP) Scribe Attestation Portions of this note were transcribed by Gwendolyn Razo. I, Dr. Nayak personally performed the history, physical exam and medical decision-making; I reviewed and confirmed the accuracy of the information in the transcribed note. copies to: Mabel Thomas MD, Howard L MD Nov 14, 2016 21:37 GWENDOLYN RAZO Nov 14, 2016 21:49 Ofe Kirby Nov 15, 2016 00:59
[2016-11-14] MEDS ORDERED: Albuterol-Ipratropium 3 mL Inhalation Solution NEB ONE (21:50)
[2016-11-14] MEDS ORDERED: Albuterol 2.5 mg/3 mL Inhalation Solution NEB ONE (21:50)
[2016-11-14 22:13] VITALS: PULSE 70; RESP 14; O2SAT 98
[2016-11-14 23:28] VITALS: BP 151/87; PULSE 52; RESP 16; O2SAT 94
[2016-11-14 23:37] LABS: BASOPHILS % (AUTO) 0.3 % (0-3); EOSINOPHILS % (AUTO) 2.5 % (0-5); MONOCYTES % (AUTO) 6.9 % (4-12); Mean Corpuscular Hemoglobin 31.2 pg (27.0-35.0); Mean Corpuscular Volume 91.5 fL (81-100); NEUTROPHILS % (AUTO) 65.3 % (40-74); Platelet Count 170 bil/L (150-400)
[2016-11-15 00:13] LABS: Magnesium 2.3 mg/dL (1.6-2.6); TROPONIN T 0.01 ug/L (0.0-0.011)
[2016-11-15 00:40] VITALS: BP 123/49; PULSE 70; RESP 18; O2SAT 92
[2016-11-15 01:21] VITALS: BP 143/48; PULSE 70; RESP 18; O2SAT 93
--- NOTE | 2016-11-15 08:26 | DRSVH ---
PROCEDURE: X-RAY CHEST ONE VIEW, PORTABLE ([id number]) INDICATIONS: dyspnea TECHNIQUE: One view of the chest was acquired. COMPARISON: [facility], CT, CT ANGIO CHEST PE, 10/05/2016, 21:40. [facility] , CR, XR CHEST 1VW (PORTABLE), 10/05/2016, 17:19. FINDINGS: Surgical changes and devices: A pacer device is seen. Lungs and pleura: No pleural effusions or pneumothorax. Lungs are clear. Mediastinum: Mediastinal contours appear normal. Heart size is normal. Bones and chest wall: Age-appropriate bony degenerative changes are seen. No suspicious bony lesion s. Overlying soft tissues appear unremarkable. IMPRESSION: Portable chest study within normal limits for age. Dictated by: Ivan Perez M.D. on 11/15/2016 at 8:24 Approved by: Ivan Perez M.D. on 11/15/2016 at 8:25
== END 2016-11-15 01:25 | disposition home or self-care (01) ==
LOC: SED 20:06
DX: J44.9 Chronic obstructive pulmonary disease, unspecified (principal); I10 Essential (primary) hypertension; Z86.73 Personal history of transient ischemic attack (TIA), and cerebral infarction without residual deficits; Z95.0 Presence of cardiac pacemaker; Z79.82 Long term (current) use of aspirin; Z88.1 Allergy status to other antibiotic agents; Z88.8 Allergy status to other drugs, medicaments and biological substances
CPT/HCPCS: 36415; 71010; 80053; 83735; 83880; 84484; 85025; 93005; 94640; 94664; 99285; J7613; J7620